=== PATIENT | female | born 1980 | race American Indian/Alaskan Native ===

== ENCOUNTER 2021-06-16 21:48 | Emergency (ER) | payer MEDICARE ==
--- NOTE | 2021-06-16 23:45 | Emergency Department Report ---
<SUZYSANTANARINA - Last Filed: 06/17/21 17:26> ED Psych HPI - General Chief Complaint: Medical Clearance Stated Complaint: Needs evaluation Time Seen by Provider: 06/16/21 23:25 - Related Data Home Medications Medication Instructions Recorded Confirmed Last Taken Melatonin [Melatonin 10MG TAB] 10 mg PO PRN 06/17/21 06/17/21 Unknown Allergies Allergy/AdvReac Type Severity Reaction Status Date / Time lurasidone HCl [From Latuda] Allergy Shortness Verified 04/13/16 12:04 of Breath ED Past Medical Hx - Medications Home Medications: Home Medications Medication Instructions Recorded Confirmed Last Taken Type Melatonin [Melatonin 10MG TAB] 10 mg PO PRN 06/17/21 06/17/21 Unknown History ED Course - Reevaluation(s) Reevaluation #1: 06/17/21 17:26 1013 WAS d/C WILL FOLLOW UP WITH op AFTER PSYCH ASSESSMENT ED Medical Decision Making - Lab Data Result diagrams: 06/16/21 23:33 06/16/21 23:33 ED Disposition Clinical Impression: UTI (urinary tract infection), Bipolar disorder Disposition: 01 HOME / SELF CARE / HOMELESS Is pt being admited?: No Does the pt Need Aspirin: No Condition: Stable Instructions: Managing Bipolar Disorder Additional Instructions: OUTPATIENT MENTAL HEALTH RESOURCES [facility], [facility] Marianne Mcclure MD: [address] [place] [address] [place] [address] [facility]: [facility] [address] [place] [address] [place] [address] [phone] [facility]: [facility]: [address] [facility] [address] [place] [address] [facility] [address] [facility]: Bernabe Marcus MD: [address] [facility] [address] [facility] [id number] [facility]: [address] [facility] [place], [place] [id number] [phone] [place] CRISIS AND ACCESS LINE: [phone] Referrals: MAURI PRETTY FNP [Primary Care Provider] - 3-5 Days <OSMAR SMITH - Last Filed: 06/17/21 21:23> ED Psych HPI - General Source: family Mode of arrival: Ambulatory Limitations: No Limitations - History of Present Illness Initial Comments: 40-year-old female with a past medical history of hypertension and bipolar disorder who is brought to the hospital by her father who expresses concern about patient's increased aggression and agitation. Patient apparently was staying at a community living establishment but was discharged from the facility due to increased agitation. Patient is now staying with family members but is getting two to exhibit agitated and aggressive behavior with. Patient has been noncompliant with her psychiatric meds for the last several months. Patient denies any psychiatric issues and denies homicidal, suicidal ideation, and psychosis. States her current medications include melatonin 2 mg and glucose tablets as needed. She states that she was told that she no longer needs her psychiatric medication. Patient only agreed to be evaluated because her blood pressure is elevated and she does not currently have a history. She denies headache, chest pain, shortness of breath, or drug use. ED Review of Systems ROS: Stated complaint: Needs evaluation Other details as noted in HPI Comment: All other systems reviewed and negative ED Past Medical Hx - Past Medical History Previous Medical History?: Yes Hx Psychiatric Treatment: Yes (bipolar, schizophrenia) Additional medical history: Low blood glucose - Surgical History Past Surgical History?: Yes Additional Surgical History: Tonsillectomy - Social History Smoking Status: Current Some Day Smoker Substance Use Type: None ED Physical Exam - General Limitations: No Limitations - Other Other exam information: General: No acute distress Head: Atraumatic Eyes: normal appearance ENT: Moist mucous membranes Neck: Normal appearance, no midline tenderness Chest: Clear to auscultation bilaterally CV: Regular rate and rhythm Abdomen: Soft, normal bowel sounds, nontender, nondistended, no rebound or guarding Back: Normal inspection Extremity: Normal inspection, full range of motion Neuro: Alert O x 3, no facial asymmetry, speech clear, no gross motor sensory deficit Psych: Appropriate behavior Skin: No rash ED Course Vital Signs 06/16/21 06/16/21 06/17/21 22:15 23:29 00:51 Temperature 97.6 F Pulse Rate 104 H 102 H Respiratory 16 Rate Blood Pressure 179/102 Blood Pressure 179/122 125/86 [Right] O2 Sat by Pulse 98 Oximetry 06/17/21 06/17/21 06/17/21 02:00 03:00 12:00 Temperature 97.6 F 98.4 F 98.4 F Pulse Rate 102 H 65 74 Respiratory 16 16 18 Rate Blood Pressure Blood Pressure 125/86 126/75 135/78 [Right] O2 Sat by Pulse 98 99 Oximetry 06/17/21 14:04 Temperature 98.3 F Pulse Rate 83 Respiratory 18 Rate Blood Pressure Blood Pressure 141/79 [Right] O2 Sat by Pulse Oximetry ED Medical Decision Making - Lab Data Result diagrams: 06/16/21 23:33 06/16/21 23:33 Critical Care Time: No Critical care attestation.: If time is entered above; I have spent that time in minutes in the direct care of this critically ill patient, excluding procedure time.
[2021-06-16 23:49] LABS: Basophils % (Auto) 0.3 % (0.0-1.8); Eosinophils # (Auto) 0.2 K/mm3 (0.0-0.4); Eosinophils % (Auto) 2.8 % (0.0-4.3); Hematocrit 40.4 % (30.3-42.9); Lymphocytes # (Auto) 2.3 K/mm3 (1.2-5.4); Lymphocytes % (Auto) 30.6 % (13.4-35.0); Mean Corpuscular HGB Conc 32 % (30-34); Mean Corpuscular Volume 93 fl (79-97); Monocytes # (Auto) 0.6 K/mm3 (0.0-0.8); Monocytes % (Auto) 7.5 % (0.0-7.3); Platelet Count 295 K/mm3 (140-440); Red Blood Count 4.35 M/mm3 (3.65-5.03)
[2021-06-17 00:08] LABS: BUN/Creatinine Ratio 11; Blood Urea Nitrogen 9 mg/dL (7-17); Calcium 9.1 mg/dL (8.4-10.2); Hemolysis Index 3
[2021-06-17 01:25] LABS: Bacteria,Urine 2+ /HPF (Negative); Bilirubin,Urine NEG (Negative); Blood,Urine NEG (Negative); Color,Urine Yellow (Yellow); Mucus,Urine FEW /HPF; Protein,Urine <15 mg/dL mg/dL (Negative); Urobilinogen,Urine < 2.0 mg/dL (<2.0)
[2021-06-17 01:31] LABS: Amphetamine Screen,Urine Negative; Benzodiazepines Screen,Urine Negative; Cannabinoid Screen,Urine Negative; Cocaine Screen,Urine Negative; Methadone Screen,Urine Negative; Opiate Screen,Urine Negative
--- NOTE | 2021-06-17 10:40 | Consultation ---
History of Present Illness - Reason for Consult Consult date: 06/17/21 Reason for consult: agitation - History of Present Psychiatric Illness The patient was seen today. She is lying down asleep. She easily arouses. The patient is calm and cooperative. She says she doesn't know why she would still be here. She says "I'm only here because my daddy wanted me to come. I don't know why but he wanted me to." I ask the patient was she threatening suicidal or homicidal behavior, or being aggressive. She states "no, none of that. I'm just being me." The patient says "my daddy is my payee over my money. He's not going to keep deciding on where I should go. It's not right." The patient says she has a history of bipolar. She says "I've lived with it pretty much all my life." She denies taking any medications. The patient says "I've been off for awhile. I was told I didn't need them. I've been okay without them anyway." The patient denies hallucinations. She says "I was never any of those things you just asked me." She denies illicit drug use, alcohol or nicotine. The nursing staff states the patient has been calm, and cooperative and hasn't exhibited any signs of self harm. PAST PSYCHIATRIC HISTORY: Diagnoses: Bipolar Suicide attempts or Self-harm behavior: Denies Prior psychiatric hospitalizations: Yes Substance Abuse history: Denies Previous psychiatric medications tried: latuda "but I'm allergic to that" Outpatient treatment: yes PAST MEDICAL HISTORY: unknown Family Psychiatric History: None reported or documented SOCIAL HISTORY Marital Status: single Living Arrangements: with dad Employment Status: Disabled Access to guns/weapons: Denies Education: History of Abuse:denies Legal History: Denies REVIEW OF SYSTEMS Constitutional: Negative for weight loss ENT: Negative for stridor Respiratory: Negative for cough or hemoptysis All other systems reviewed and are negative MENTAL STATUS EXAMINATION General Appearance and Behavior: Age appropriate, good hygiene, wearing appropriate clothes. calm, cooperative Cooperation: Cooperative Psychomotor Behavior: Psychomotor normal Mood: good Affect and affective range: Congruent with stated mood Thought Process: Goal directed Thought Content: Reality oriented Speech: Normal Suicidal Ideation: Denies Homicidal Ideation: Denies Hallucinations: Denies Delusions: Denies Impulse Control: Limited Insight and Judgment: Limited insight and fair judgment Memory: Limited Attention: distracted Orientation: a/o x 3 Assessment (1) Hx of Bipolar Disorder Current Visit: Yes Status: Acute Treatment Plan d/c 1013 Follow up with outpatient psychiatry to get back on meds Medical: per primary Disposition: Do not recommend acute psychiatric inpatient treatment Will sign off. Thanks Meteorologist In Charge is to further discuss safety plan and give the patient all necessary resources Case staffed with Dr. Loredo Medications and Allergies Allergies Allergy/AdvReac Type Severity Reaction Status Date / Time lurasidone HCl [From Latuda] Allergy Shortness Verified 04/13/16 12:04 of Breath Home Medications Medication Instructions Recorded Confirmed Last Taken Type Melatonin [Melatonin 10MG TAB] 10 mg PO PRN 06/17/21 06/17/21 Unknown History Mental Status Exam - Vital signs Last Vital Signs Temp 98.4 F 06/17/21 03:00 Pulse 65 06/17/21 03:00 Resp 16 06/17/21 03:00 BP 126/75 06/17/21 03:00 Pulse Ox 99 06/17/21 03:00 Results Result Diagrams: 06/16/21 23:33 06/16/21 23:33 Abnormal lab results 06/16/21 06/16/21 06/16/21 Range/Units 23:33 23:33 23:33 [place] % (Auto) 7.5 H (0.0-7.3) % Urine WBC (Auto) (0.0-6.0) /HPF Salicylates < 0.3 L (2.8-20.0) mg/dL Acetaminophen 5.0 L (10.0-30.0) ug/mL 06/17/21 Range/Units 01:01 [place] % (Auto) (0.0-7.3) % Urine WBC (Auto) 14.0 H (0.0-6.0) /HPF Salicylates (2.8-20.0) mg/dL Acetaminophen (10.0-30.0) ug/mL All other labs normal.
--- NOTE | 2021-06-17 11:13 | Event Note ---
Date: 06/17/21 pt is cooperative no SI or HI awaiting consult vss, no distress
[2021-06-17 14:04] VITALS: BP 141/79
== END 2021-06-17 17:30 | disposition home or self-care (01) ==
LOC: ED 21:48
DX: N39.0 Urinary tract infection, site not specified (principal); F31.9 Bipolar disorder, unspecified; Z20.822 Contact with and (suspected) exposure to COVID-19; Z79.899 Other long term (current) drug therapy
CPT/HCPCS: 36415; 80048; 80307; 81001; 84703; 85025; 87086; 99284; U0003; 80320; G0480

== ENCOUNTER 2021-09-24 14:03 | Emergency (ER) | payer MEDICARE, MEDICAID ==
--- NOTE | 2021-09-24 14:27 | Emergency Department Report ---
ED Psych HPI - General Chief Complaint: Vaginal Bleeding Stated Complaint: PYSCH EVAL Time Seen by Provider: 09/24/21 14:12 Source: patient, RN/MD Mode of arrival: Ambulatory Limitations: Other - History of Present Illness Initial Comments: 40-year-old female with a past medical history of bipolar disorder as per medical record review presents to the hospital with possible delusion. Patient first presented to labor and delivery point as she wants to get checked for vaginal bleeding and stating she was 34 to 36 weeks . When questi oned about her care patient states that she is her care and that what ever doctor is on-call can induce her. Patient also states that she does not have a psychiatric disorder and no longer requires psychiatric medication. She denies hallucinations, suicidal, homicidal ideation. As per medical record review in June patient received ED psychiatric evaluation and had a negative test at that time. Patient denies abdominal pain - Related Data Home Medications Medication Instructions Recorded Confirmed Last Taken Melatonin [Melatonin 10MG TAB] 10 mg PO PRN 06/17/21 09/24/21 Unknown Allergies Allergy/AdvReac Type Severity Reaction Status Date / Time lurasidone HCl [From Latuda] Allergy Shortness Verified 09/24/21 14:07 of Breath ED Review of Systems ROS: Stated complaint: PYSCH EVAL Other details as noted in HPI Comment: All other systems reviewed and negative ED Past Medical Hx - Past Medical History Previous Medical History?: Yes Hx Psychiatric Treatment: Yes (bipolar, schizophrenia) Additional medical history: Low blood glucose - Surgical History Past Surgical History?: No Additional Surgical History: Tonsillectomy - Social History Smoking Status: Never Smoker Substance Use Type: None - Medications Home Medications: Home Medications Medication Instructions Recorded Confirmed Last Taken Type Melatonin [Melatonin 10MG TAB] 10 mg PO PRN 06/17/21 09/24/21 Unknown History ED Physical Exam - General Limitations: No Limitations - Other Other exam information: General: No acute distress Head: Atraumatic Eyes: normal appearance ENT: Moist mucous membranes Neck: Normal appearance, no midline tenderness Chest: Clear to auscultation bilaterally CV: Regular rate and rhythm Abdomen: Soft, normal bowel sounds, nontender, nondistended, no rebound or guarding. Nongravid abdomen Back: Normal inspection Extremity: Normal inspection, full range of motion Neuro: Alert O x 3, no facial asymmetry, speech clear, no gross motor sensory deficit Psych: Cooperative Skin: No rash ED Course Vital Signs 09/24/21 09/24/21 09/24/21 14:04 14:09 20:18 Temperature 98.4 F 97.7 F Pulse Rate 89 64 Respiratory 19 16 Rate Blood Pressure 135/90 126/84 [Left] O2 Sat by Pulse 99 98 98 Oximetry ED Medical Decision Making - Lab Data Result diagrams: 09/24/21 14:28 09/24/21 14:28 Lab Results 09/24/21 09/24/21 09/24/21 Range/Units 14:28 14:28 14:28 WBC 6.8 (4.5-11.0) K/mm3 RBC 4.20 (3.65-5.03) M/mm3 Hgb 12.5 (10.1-14.3) gm/dl Hct 38.1 (30.3-42.9) % MCV 91 (79-97) fl MCH 30 (28-32) pg MCHC 33 (30-34) % RDW 14.8 (13.2-15.2) % Plt Count 221 (140-440) K/mm3 Lymph % (Auto) 27.2 (13.4-35.0) % Bond % (Auto) 7.8 H (0.0-7.3) % Eos % (Auto) 3.1 (0.0-4.3) % Baso % (Auto) 0.4 (0.0-1.8) % Lymph # (Auto) 1.9 (1.2-5.4) K/mm3 Bond # (Auto) 0.5 (0.0-0.8) K/mm3 Eos # (Auto) 0.2 (0.0-0.4) K/mm3 Baso # (Auto) 0.0 (0.0-0.1) K/mm3 Seg Neutrophils % 61.5 (40.0-70.0) % Seg Neutrophils # 4.2 (1.8-7.7) K/mm3 Sodium 141 (137-145) mmol/L Potassium 4.2 (3.6-5.0) mmol/L Chloride 103.9 (98-107) mmol/L Carbon Dioxide 25 (22-30) mmol/L Anion Gap 16 mmol/L BUN 8 (7-17) mg/dL Creatinine 0.9 (0.6-1.2) mg/dL Estimated GFR > 60 ml/min BUN/Creatinine Ratio 9 % Glucose 98 (65-100) mg/dL Calcium 9.2 (8.4-10.2) mg/dL HCG, Quant < 2 (0-4) mIU/mL Salicylates (2.8-20.0) mg/dL Acetaminophen (10.0-30.0) ug/mL Plasma/Serum Alcohol (0-0.07) % 09/24/21 09/24/21 09/24/21 Range/Units 14:28 14:28 14:28 WBC (4.5-11.0) K/mm3 RBC (3.65-5.03) M/mm3 Hgb (10.1-14.3) gm/dl Hct (30.3-42.9) % MCV (79-97) fl MCH (28-32) pg MCHC (30-34) % RDW (13.2-15.2) % Plt Count (140-440) K/mm3 Lymph % (Auto) (13.4-35.0) % Bond % (Auto) (0.0-7.3) % Eos % (Auto) (0.0-4.3) % Baso % (Auto) (0.0-1.8) % Lymph # (Auto) (1.2-5.4) K/mm3 Bond # (Auto) (0.0-0.8) K/mm3 Eos # (Auto) (0.0-0.4) K/mm3 Baso # (Auto) (0.0-0.1) K/mm3 Seg Neutrophils % (40.0-70.0) % Seg Neutrophils # (1.8-7.7) K/mm3 Sodium (137-145) mmol/L Potassium (3.6-5.0) mmol/L Chloride (98-107) mmol/L Carbon Dioxide (22-30) mmol/L Anion Gap mmol/L BUN (7-17) mg/dL Creatinine (0.6-1.2) mg/dL Estimated GFR ml/min BUN/Creatinine Ratio % Glucose (65-100) mg/dL Calcium (8.4-10.2) mg/dL HCG, Quant (0-4) mIU/mL Salicylates < 0.3 L (2.8-20.0) mg/dL Acetaminophen 5.0 L (10.0-30.0) ug/mL Plasma/Serum Alcohol < 0.01 (0-0.07) % - Medical Decision Making 40-year-old female presents to the the ER after first going to labor and delivery stating that she needed to be induced due to advanced . ED work-up today confirms that patient is not . Patient is a psychiatric history is noncompliant with medications. Patient is medically cleared with UA and drug urine drug screen collection pending. Patient awaiting mental evaluation for psychiatric disposition and possible inpatient treatment Critical Care Time: No Critical care attestation.: If time is entered above; I have spent that time in minutes in the direct care of this critically ill patient, excluding procedure time. ED Disposition Clinical Impression: Delusion, Bipolar disorder, Medical clearance for psychiatric admission Disposition: [address] [place] [address] Is pt being admited?: No Does the pt Need Aspirin: No Condition: Stable Time of Disposition: 22:28
[2021-09-24 15:01] LABS: Basophils % (Auto) 0.4 % (0.0-1.8); Eosinophils # (Auto) 0.2 K/mm3 (0.0-0.4); Eosinophils % (Auto) 3.1 % (0.0-4.3); Hematocrit 38.1 % (30.3-42.9); Hemoglobin 12.5 gm/dl (10.1-14.3); Lymphocytes # (Auto) 1.9 K/mm3 (1.2-5.4); Lymphocytes % (Auto) 27.2 % (13.4-35.0); Mean Corpuscular HGB Conc 33 % (30-34); Mean Corpuscular Volume 91 fl (79-97); Monocytes # (Auto) 0.5 K/mm3 (0.0-0.8); Monocytes % (Auto) 7.8 % (0.0-7.3); Platelet Count 221 K/mm3 (140-440); Red Cell Distribution Width 14.8 % (13.2-15.2)
[2021-09-24 15:16] LABS: BUN/Creatinine Ratio 9; Blood Urea Nitrogen 8 mg/dL (7-17); Calcium 9.2 mg/dL (8.4-10.2); Hemolysis Index 4
[2021-09-25 08:53] VITALS: BP 114/75
--- NOTE | 2021-09-25 11:14 | Consultation ---
History of Present Illness - Reason for Consult Consult date: 09/25/21 Reason for consult: delusional - History of Present Psychiatric Illness The patient was seen today. She is in the seclusion room. Her mood is elevated. She is delusional. She says she is and "wants the baby ripped out of her." She says "it is an alien baby and it came from [facility]." The patient says she has never seen a psychiatrist. She says "I was diagnosed with normal." She says she doesn't take meds because she doesn't need them. The patient says "I sleep good and I feel great." She denies SI/HI. The patient states "I love myself. I came here to get this baby out." PAST PSYCHIATRIC HISTORY Diagnoses: Denies Suicide attempts or Self-harm behavior: denies Prior psychiatric hospitalizations: Denies Substance Abuse history: Denies Previous psychiatric medications tried: Denies Outpatient treatment: Denies PAST MEDICAL HISTORY: None reported Family Psychiatric History: None reported or documented SOCIAL HISTORY Marital Status: Single Living Arrangements: Lives alone Employment Status: Employed Access to guns/weapons: Denies Education: History of Abuse: Denies Legal History: Unknown REVIEW OF SYSTEMS Constitutional: Negative for weight loss ENT: Negative for stridor Respiratory: Negative for cough or hemoptysis All other systems reviewed and are negative MENTAL STATUS EXAMINATION General Appearance and Behavior: Age appropriate, good hygiene, wearing appropriate clothes, good eye contact, cooperative Cooperation: Participating Psychomotor Behavior: Psychomotor normal Mood: great Affect and affective range: congruent with stated mood Thought Process: illogical Thought Content: Delusional Speech: Normal tone and pace Suicidal Ideation: Denies Homicidal Ideation: Denies Hallucinations: Denies Delusions: Yes Impulse Control: Limited Insight and Judgment: Poor insight and judgment Memory: Limited Attention: attentive Orientation: Alert, oriented Diagnoses: Bipolar Disorder Treatment Plan 1013 Olanzapine 5mg po daily Depakote DR 125mg po BID Doxepin 10mg po qhs PSYCHOTHERAPY: Supportive psychotherapy provided MEDICAL: Per primary team DELIRIUM PRECAUTIONS: Please re-orient patient frequently, keep lights on during the day, and minimize benzodiazepines and opiates as these medications could worsen patient's confusion. ENTRY LEVEL ACCOUNT MANAGER: Per medical team DISPOSITION: recommend acute psychiatric inpatient treatment Will follow. Thanks. Thank you for the consult. Case staffed with Dr. Loredo Medications and Allergies Allergies Allergy/AdvReac Type Severity Reaction Status Date / Time lurasidone HCl [From Latuda] Allergy Shortness Verified 09/24/21 14:07 of Breath Home Medications Medication Instructions Recorded Confirmed Last Taken Type Melatonin [Melatonin 10MG TAB] 10 mg PO PRN 06/17/21 09/24/21 Unknown History Mental Status Exam - Vital signs Last Vital Signs Temp 98.2 F 09/25/21 08:51 Pulse 93 H 09/25/21 08:51 Resp 18 09/25/21 08:51 BP 114/75 09/25/21 08:51 Pulse Ox 98 09/25/21 08:53 Results Result Diagrams: 09/24/21 14:28 09/24/21 14:28 Abnormal lab results 09/24/21 09/24/21 09/24/21 Range/Units 14:28 14:28 14:28 [place] % (Auto) 7.8 H (0.0-7.3) % Salicylates < 0.3 L (2.8-20.0) mg/dL Acetaminophen 5.0 L (10.0-30.0) ug/mL All other labs normal.
[2021-09-25] MEDS ORDERED: DIVALPROEX DR 125 MG TAB PO SCH (12:00)
--- NOTE | 2021-09-25 12:05 | Emergency Department Report ---
Blank Doc - Documentation Documentation: S: No events reported overnight O: Vital Signs - 24 hr 09/24/21 09/24/21 09/24/21 14:04 14:09 20:18 Temperature 98.4 F 97.7 F Pulse Rate 89 64 Respiratory 19 16 Rate Blood Pressure 135/90 126/84 [Left] O2 Sat by Pulse 99 98 98 Oximetry 09/25/21 09/25/21 08:51 08:53 Temperature 98.2 F Pulse Rate 93 H Respiratory 18 Rate Blood Pressure 114/75 [Left] O2 Sat by Pulse 98 98 Oximetry A: Bipolar disorder P: 1013 awaiting inpatient psych
[2021-09-25] MEDS ORDERED: DOXEPIN 10 MG CAP PO SCH (22:00)
== END 2021-09-25 16:37 ==
LOC: ED 14:03
DX: F22 Delusional disorders (principal); F31.9 Bipolar disorder, unspecified; Z13.30 Encounter for screening examination for mental health and behavioral disorders, unspecified
CPT/HCPCS: 36415; 80048; 80320; 84702; 85025; 99285; G0480

== ENCOUNTER → 2021-09-25 14:10 | Emergency (ER) | payer MEDICARE | END | disposition left against medical advice (07) | LOC: TRG 09-24 13:32 → EDSTATUS 09-24 14:10 → ED 14:10 | DX: Z00.00 Encounter for general adult medical examination without abnormal findings (principal); Z53.21 Procedure and treatment not carried out due to patient leaving prior to being seen by health care provider ==